=== PATIENT | female | born 1965 | race Caucasian/White ===

== ENCOUNTER 2023-09-19 08:26 | Outpatient (CLI) | payer OTHER, SELFPAY ==
--- NOTE | ~2023-09-19 | MM_ITS ---
EXAMINATION: MM screening andrea BI w jose HISTORY: Screening TECHNIQUE: Craniocaudal and mediolateral oblique 3-D tomosynthesis images were obtained and synthetic 2-D images were generated. CAD analysis was submitted and interpreted. COMPARISON: No prior mammogram is available for comparison at this institution. BREAST PARENCHYMAL COMPOSITION: Not dense: There are scattered areas of fibroglandular density. FINDINGS: There are asymmetries centered in the upper outer quadrant of the left breast. No mammograp hic evidence for malignancy in the right breast. IMPRESSION: 1. Left breast asymmetries. 2. Additional mammographic views and possible breast ultrasound are recommended. BI-RADS CATEGORY 0 - INCOMPLETE STUDY, NEED ADDITIONAL IMAGING EVALUATION. Reviewed, dictated and finalized at location A. IMPRESSION: 1. Left breast asymmetries. 2. Additional mammographic views and possible breast ultrasound are recommended . BI-RADS CATEGORY 0 - INCOMPLETE STUDY, NEED ADDITIONAL IMAGING EVALUATION.
== END 2023-09-19 08:27 | disposition home or self-care (01) ==
PROVIDERS: PCP Nurse Practitioner Family; Visit Provider Nurse Practitioner Family
DX: Z12.31 Encounter for screening mammogram for malignant neoplasm of breast (principal); R92.8 Other abnormal and inconclusive findings on diagnostic imaging of breast
CPT/HCPCS: 77063; 77067

== ENCOUNTER 2023-10-03 09:03 | Outpatient (CLI) | payer OTHER, SELFPAY ==
--- NOTE | ~2023-10-03 | MMUS_ITS ---
EXAMINATION: MM diagnostic andrea LT w jose, US breast LT complete HISTORY: Follow-up left breast asymmetries TECHNIQUE: Additional 3-D tomosynthesis images of the left breast were performed and synthetic 2-D im ages were generated. CAD analysis was submitted and interpreted. High resolution complete left breast ultrasound was performed. COMPARISON: 09/19/2023 BREAST PARENCHYMAL COMPOSITION: Not dense: There are scattered areas of fibroglandular density. FINDINGS: MAMMOGRAPHIC FINDINGS: There are no discrete masses, suspicious calcifications or architectural distortion in the left breas t. ULTRASOUND: Complete US of all 4 quadrants of the left breast and retroareolar region was reviewed. Mildly promin ent ducts are present in the subareolar location, likely accounting for asymmetry seen on mammography . IMPRESSION: 1. No evidence for malignancy in the left breast. Benign findings. 2. Routine yearly screening mammogram and regular clinical breast examination are recommended. BI-RADS Category 2: Benign finding(s). Reviewed, dictated and finalized at location B. IMPRESSION: 1. No evidence for malignancy in the left breast. Benign findings. 2. Routine yearly screening mammogram and regular clinical breast examination a re recommended. BI-RADS Category 2: Benign finding(s).
== END 2023-10-03 09:04 | disposition home or self-care (01) ==
LOC: CHSIMG 09:05
PROVIDERS: PCP Nurse Practitioner Family; Visit Provider Nurse Practitioner Family
DX: N64.89 Other specified disorders of breast (principal)
CPT/HCPCS: 76641; 77061; 77065; G0279

== ENCOUNTER 2024-03-05 10:12 | Outpatient (CLI) | payer OTHER, SELFPAY ==
[2024-03-05 10:23] LABS: Basophils Absolute Auto 0.07 K/mm3 (0.00-0.10); Basophils Percent Auto 0.8 % (0.0-1.0); Eosinophils Absolute Auto 0.26 K/mm3 (0.02-0.50); Eosinophils Percent Auto 2.8 % (1.0-6.0); Hematocrit 42.3 % (35.0-49.0); Hemoglobin 14.2 g/dL (12.0-15.0); Immature Granulocyte Absolute 0.02 K/mm3 (0.00-0.00); Immature Granulocyte Percent A 0.2 % (0.0-0.0); Lymphocytes Absolute Auto 3.26 K/mm3 (1.10-4.50); Lymphocytes Percent Auto 35.7 % (18.0-42.0); Mean Corpuscular HGB Conc 33.6 g/dL (32-36); Mean Corpuscular Hemoglobin 31.6 pg (27.0-31.0); Mean Platelet Volume 10.8 fl (9.2-11.8); Monocytes Percent Auto 7.7 % (2.0-11.0); Neutrophils Absolute Auto 4.83 K/mm3 (1.70-7.20); Neutrophils Percent Auto 52.8 % (50.0-70.0); Platelet Count Result 216 K/mm3 (150-420); Red Cell Distribution Width 12.7 % (11.6-14.4); White Blood Count 9.1 K/mm3 (4.8-10.8)
[2024-03-05 10:33] LABS: Hemoglobin A1C 5.7 % (<5.7)
[2024-03-05 11:09] LABS: Alanine Aminotransferase 41 U/L (14-59); Albumin Level 3.7 g/dL (3.4-5.0); Alkaline Phosphatase 75 U/L (46-116); Anion Gap 7 mmol/L (4-12); Aspartate Amino Transferase 29 U/L (15-37); Bilirubin,Total 0.5 mg/dL (0.00-1.00); Blood Urea Nitrogen 14 mg/dL (7-18); Calcium 8.9 mg/dL (8.5-10.1); Carbon Dioxide 27 mmol/L (21-32); Chloride 106 mmol/L (98-108); Cholesterol 211 mg/dL (0-200); Estimated Glomerular Filt Rate > 60; Glucose 102 mg/dL (70-99); HDL Direct 65 mg/dL (40-60); Iron 93 ug/dL (50-170); LDL Cholesterol Calculated 108 mg/dL (<130); Osmolality Calculated 290 mOsm/kg (285-295); Percent Iron Saturation 29 % (12-57); Potassium 4.4 mmol/L (3.5-5.1); Sodium 140 mmol/L (136-145); Total Protein 6.5 g/dL (6.4-8.2); Triglycerides 188 mg/dL (0-150)
== END 2024-03-05 10:13 | disposition home or self-care (01) ==
LOC: CHSLAB 10:13
PROVIDERS: PCP Nurse Practitioner Family; Visit Provider Nurse Practitioner Family
DX: Z00.00 Encounter for general adult medical examination without abnormal findings (principal); R23.2 Flushing
CPT/HCPCS: 36415; 80053; 80061; 83036; 83540; 83550; 84443; 85025

== ENCOUNTER 2024-03-26 09:53 | Outpatient (CLI) | payer OTHER, SELFPAY ==
--- NOTE | 2024-03-26 09:59 | ECG_ITS ---
Test Date: 2024-03-26 10:08:11 Measurements Intervals [place] Rate: 71 P: 62 VA: 158 QRS: -69 QRSD: 119 T: 48 QT: 404 QTc: 441 Interpretive Statements SINUS RHYTHM RIGHT BUNDLE BRANCH BLOCK [120+ ms QRS DURATION, UPRIGHT V1, 40+ ms S IN I/aVL/V4/V5/V6] LEFT ANTERIOR FASCICULAR BLOCK [QRS AXIS <= -45, QR IN I, RS IN II] ABNORMAL ECG No previous ECG available for comparison Electronically Signed On 03-26-2024 12:44:43 CDT by Terrence Luther M.D.
--- NOTE | 2024-03-29 08:43 | P.PCNHOL_ITS ---
Holter/Event Monitor Holter/Event Monitor Date of procedure: 03/26/24 Holter/Event Procedure: 48 Hr Holter Monitor Indications: Syncope Conclusion: 1. 48 hour holter monitor on 03/26/24. 2.Underlying rhythm is sinus rhythm. HR range 49-118 bpm; average HR 76. HR at 49 bpm was at 04:31. 3. There are 28 premature supraventricular complexes. No supraventricular tachycardia. 4. There are 4 premature ventricular complexes. No ventricular tachycardia. 5. No sinoatrial or atrioventricular blocks. No significant pauses greater than 2 seconds. 6. Patient reports symptom of left side pain which demonstrates sinus tachy cardia at 115 bpm with baseline artifact.
== END 2024-03-26 09:54 | disposition home or self-care (01) ==
LOC: CHSCARD 09:54
PROVIDERS: PCP Nurse Practitioner Family; Visit Provider Nurse Practitioner Family
DX: R23.2 Flushing (principal); I45.10 Unspecified right bundle-branch block; I44.4 Left anterior fascicular block; R94.31 Abnormal electrocardiogram [ECG] [EKG]
CPT/HCPCS: 93005; 93225; 93226

== ENCOUNTER 2024-08-27 08:00 | Outpatient (CLI) | payer OTHER, SELFPAY ==
--- NOTE | ~2024-08-27 | NM_ITS ---
EXAMINATION: NM stress w perf spect multi DATE: 08/27/2024 10:07 INDICATION: Dyspnea. TECHNIQUE: Rest images were obtained following intravenous administration of 11 mCi Tc99m tetrofosmin (Myoview). The patient performed an exercise activity. At peak exercise, 34.7 mCi Tc99m tetrofosmin (Myoview) was administered intravenously, and stress images were obtained. Data was reconstructed int o short axis and horizontal and vertical long axis SPECT images. Gated SPECT images were also obtaine d. COMPARISON: None. FINDINGS: There is no definite reversible or fixed perfusion abnormality to suggest ischemia or infar ction. There is no segmental wall motion abnormality. Left ventricular ejection fraction measures > 70%. IMPRESSION: 1. No definite ischemia or infarct. 2. Normal left ventricular ejection fraction measuring >70%. Reviewed, dictated and finalized at location L.
--- NOTE | 2024-08-27 08:06 | EST_ITS ---
Patient Info Name: Melinda Cerna Age: 59 years : 1965 Gender: Female Ht: 67 in Wt: 148 lbs BSA: 1.79 m2 HR: 70 bpm BP: 151 / 78 mmHg Exam Date: 08/27/2024 9:03 AM Exam Location: Echo Lab Patient Status: Outpatient Admit Date: 08/27/2024 Staff Ordering Physician: Ino Lozano DO Attending Provider: Ino Lozano DO Exercise Technologist: ean matute Exercise Physician: Ino Lozano DO Exam Type: CA stress test treadmill w NM Study Info Indications R06.09 - Other forms of dyspnea A nuclear stress test was performed. Summary 1. 1. Negative Pérez exercise stress test for ischemic ST changes by ECG criteria. 2. 2. Good functional capacity, achieving 8.9 METs of workload. 3. 3. Baseline hypertension with hypertensive response to exercise. 4. 4. Appropriate HR recovery at 1 minute post exercise. 5. 5. Nuclear scan to follow and will be reported separately. Please correlate with it. 6. 6. Patient informed of the above results. Protocol: Pérez Stress ECG Details Stage: REST Duration (min): 0 min : 51 sec Speed (mph): 0.0 Grade (%): 0 HR (bpm): 62 SBP (mmHg): --- DBP (mmHg): --- METS: --- Stage: REST Duration (min): 2 min : 39 sec Speed (mph): 0.0 Grade (%): 0 HR (bpm): 67 SBP (mmHg): 151 DBP (mmHg): 78 METS: --- Stage: REST Duration (min): 12 min : 30 sec Speed (mph): 0.0 Grade (%): 0 HR (bpm): 71 SBP (mmHg): 151 DBP (mmHg): 78 METS: --- Stage: STAGE 1 Duration (min): 1 min : 0 sec Speed (mph): 1.7 Grade (%): 10 HR (bpm): 100 SBP (mmHg): 151 DBP (mmHg): 78 METS: --- Stage: STAGE 1 Duration (min): 2 min : 0 sec Speed (mph): 1.7 Grade (%): 10 HR (bpm): 108 SBP (mmHg): 151 DBP (mmHg): 78 METS: --- Stage: STAGE 1 Duration (min): 3 min : 0 sec Speed (mph): 1.7 Grade (%): 10 HR (bpm): 109 SBP (mmHg): 194 DBP (mmHg): 82 METS: --- Stage: STAGE 2 Duration (min): 1 min : 0 sec Speed (mph): 2.5 Grade (%): 12 HR (bpm): 113 SBP (mmHg): 194 DBP (mmHg): 82 METS: --- Stage: STAGE 2 Duration (min): 2 min : 0 sec Speed (mph): 2.5 Grade (%): 12 HR (bpm): 122 SBP (mmHg): 219 DBP (mmHg): 87 METS: --- Stage: STAGE 2 Duration (min): 3 min : 0 sec Speed (mph): 2.5 Grade (%): 12 HR (bpm): 129 SBP (mmHg): 219 DBP (mmHg): 87 METS: --- Stage: STAGE 3 Duration (min): 0 min : 59 sec Speed (mph): 3.4 Grade (%): 14 HR (bpm): 138 SBP (mmHg): 219 DBP (mmHg): 87 METS: --- Stage: RECOVERY Duration (min): 1 min : 0 sec Speed (mph): 0.0 Grade (%): 0 HR (bpm): 121 SBP (mmHg): 219 DBP (mmHg): 87 METS: --- Stage: RECOVERY Duration (min): 2 min : 0 sec Speed (mph): 0.0 Grade (%): 0 HR (bpm): 103 SBP (mmHg): 171 DBP (mmHg): 70 METS: --- Stage: RECOVERY Duration (min): 2 min : 2 sec Speed (mph): 0.0 Grade (%): 0 HR (bpm): 103 SBP (mmHg): 171 DBP (mmHg): 70 METS: --- Rest HR: 71 bpm Peak HR: 138 bpm Rest Sys BP: 151 mmHg Peak Sys BP: 219 mmHg Max Pred HR: 159 bpm % Max Pred HR: 87 % Target HR: 135 bpm Max RPP: 30,222 bpm*mmHg Acevedo Score: 2 BP Response: Patient exhibited a hypertensive response with stress Termination Reason: Reached target heart rate or workload Cardiac Symptoms: Shortness of breath Max ST Seg Deviation: 1 mm Total Time: 6 min : 59 sec Rest Rodríguez BP: 78 mmHg Peak Rodríguez BP: 87 mmHg Angina Score: None Total METS: 8.6 Resting ECG Sinus rhythm, RBBB, LAFB. Stress ECG No ST changes. Arrhythmias None. Report Signatures
--- OUTSIDE RECORDS SUMMARY | 2024-08-27 08:11 | XMS_ITS | Clinical Summary ---
Author Organization [facility] Address [facility] [place] [address] Care Team Providers Care Commercial Title Examiner Name Role Phone Raz Fortinodameon MARIANN Primary Care Provider [phone] Allergies No known active allergies Medications Multiple Vitamins-Iron (MULTI-VITAMIN/ IRON) TabIndications: Nutritional Support Take 1 tablet by mouth daily. Indications: Nutritional Support Active fluticasone propionate (FLONASE) 50 MCG/ACT nasal sprayIndication s:Seasonal Allergic Rhinitis 1 spray by Each Nostril route daily as needed. Indications: Hayfever 4 Active sertraline (ZOLOFT) 25 MG tablet Take 1 tablet (25 mg total) by mouth daily. 4 Active zinc gluconate 50 MG Tab Take 1 tablet (50 mg total) by mouth daily. Active vitamin C (ASCORBIC ACID) 250 MG tablet Take 2 tablets (500 mg total) by mouth daily. Active HYDROcodone-sabino taminophen (NORCO) 5-325 MG tablet Take 1 tablet by mouth every 6 (six) hours as needed for Pain. Active ibuprofen (MOTRIN) 800 MG tablet Take 0.5 tablets (400 mg total) by mouth every 4 (four) hours as needed for Pain. 30 tablet 4 Active Active Problems Problem Noted Date Diagnosed Date Ruptured appendix 06/14/2023 Family History Medical History Relation Comments Heart Disease Father Cancer Mother Diabetes Mother Heart Disease Mother Diabetes Paternal Grandmother Relation Status Comments Father Mother Paternal Grandmother Social History Tobacco Use Types Packs/Day Years Used Date Smoking Tobacco: Former Cigarettes 0.5 30 0 06/21/1993 - 06/21/2023 Smokeless Tobacco: Never Alcohol Use Standard Drinks/Week Comments Not Currently 0 (1 standard drink = 0.6 oz pur e alcohol) none in 2 months [facility] Utilities Answer Date Recorded In the past 12 months has th e electric, gas, oil, or water company threatened to shut off services in your home? No 06/14/2023 Humiliation, Afraid, Rape, and Kick questionnair e Answer Date Recorded Within the last year, have y ou been afraid of your partner or ex-partner? No 06/14/2023 Within the last year, have y ou been humiliated or emotionally abused in other ways by your partner or ex-partner? No Within the last year, have y ou been kicked, hit, slapped, or otherwise physically hurt by your partner or ex-partner? No 06/14/2023 Within the last year, have y ou been raped or forced to have any kind of sexual activity by your partner or ex-partner? No 06/14/2023 Overall Financial Resource Strain (CARDIA) Answe r Date Recorded How hard is it for you to pa y for the very basics like food, housing, medical care, and heating? Not very hard 06/14/2023 Hunger Vital Sign Answer Date Recorded Within the past 12 months, y ou worried that your food would run out before you got the money to buy more. Never true 06/14/20 23 Within the past 12 months, t he food you bought just didn't last and you didn't have money to get more. Never true 06/14/2023 PRAPARE - Transportation Answer Date Re corded In the past 12 months, has l ack of transportation kept you from medical appointments or from getting medications? No 05/18 In the past 12 months, has l ack of transportation kept you from meetings, work, or from getting things needed for daily living? No 06/14/2023 Housing Stability Vital Sign Answer Efrain e Recorded In the last 12 months, was t here a time when you were not able to pay the mortgage or rent on time? No 06/14/2023 In the last 12 months, how many places have you lived? 1 06/14/2023 In the last 12 months, was t here a time when you did not have a steady place to sleep or slept in a fpc (including now)? 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 Pulse 80 08/14/2023 6:45 PM FRONT END LOADER OPERATOR Temperature 37.1 C (98.7 F) 08/14/2023 6:15 PM FRONT END LOADER OPERATOR Respiratory Rate 22 08/14/2023 6:45 PM FRONT END LOADER OPERATOR Oxygen Saturation 95% 08/14/2023 7:07 PM FRONT END LOADER OPERATOR Inhaled Oxygen Concentration - - Weight 67.4 kg (148 lb 9.4 oz) 08/14/2023 1:45 P M FRONT END LOADER OPERATOR Height 161.3 cm (5' 3.5 ) 08/14/2023 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 Body Mass Index 25.91 08/14/2023 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 Plan of Treatment Health Maintenance Due Date Last Done Comments Cervical Cancer Screening Pa p Smear (Age 30 to 64) Every 3 Years 1965 Colorectal Cancer Screening Colonoscopy (10 Years) 1965 Annual Physical 1966 PHQ-2 (Phys[facility] [place]) 1975 Hepatitis C 1981 Cervical Cancer Screening Pa p with HPV Testing (Age 30 to 64) Every 5 Years 1993 Cervical Cancer Screening with HPV 1993 Mammogram Screening 2003 Zoster Vaccines (1 of 2) 2013 DTaP, Tdap and Td Vaccines ( 2 - Td or Tdap) 06/29/2022 06/29/2012 COVID-19 Vaccine ( - 2023-2 5 season) 2024 Influenza Adult (#1) 2024 PHQ-2 (Phys[facility] [place]) 06/16/2024 RSV Immunization or 60+ Years (1 - 1-dose 75+ series) 2038 Meningococcal B Vaccine Aged Out No l onger eligible based on patient's age to complete this topic Meningococcal Vaccine Aged Out No nickie kristina eligible based on patient's age to complete this topic Pneumococcal Vaccine: Pediat rics (0 to 5 Years) and At-Risk Patients (6 to 64 Years) Aged Out No longer eligi ble based on patient's age to complete this topic RSV Immunizations Under 20 Months Aged Out No longer eligible based on patient's age to complete this topic Insurance UMR Advance Directives * Full Code (Latest Code Status on File) Date Activated Date Inactivated Comments 06/21/2023 1:52 AM 08/14/2023 12:55 PM * Full Code Date Activated Date Inactivated Comments 06/14/2023 9:42 PM 06/19/2023 5:15 PM Care Teams Commercial Title Examiner Relationship Specialty Start Date End Date Lucía Crandall FNP [address] [place] [phone] PCP - General Nurse Practitioner Family 06/17/23
== END 2024-08-27 08:01 | disposition home or self-care (01) ==
PROVIDERS: PCP Nurse Practitioner Family; Visit Provider Internal Medicine Cardiovascular Disease
DX: R06.09 Other forms of dyspnea (principal); I10 Essential (primary) hypertension
CPT/HCPCS: 78452; 93017; A9502

== ENCOUNTER 2024-11-11 12:04 | Outpatient (CLI) | payer OTHER, SELFPAY ==
--- NOTE | ~2024-11-11 | MM_ITS ---
EXAMINATION: MM screening andrea BI w jose HISTORY: Screening TECHNIQUE: Craniocaudal and mediolateral oblique 3-D tomosynthesis images were obtained and synthetic 2-D images were generated. CAD analysis was submitted and interpreted. COMPARISON: Comparison to multiple prior studies sequentially, with oldest reviewed study dated 10/2023. BREAST PARENCHYMAL COMPOSITION: Not dense: There are scattered areas of fibroglandular density. FINDINGS: There is no evidence of suspicious mass, calcification, or architectural distortion to sugg est malignancy in either breast. There has been no suspicious interval change. IMPRESSION: 1. No mammographic evidence of malignancy. 2. Recommend routine screening mammography in one year. BI-RADS Category 1: Negative Reviewed, dictated and finalized at location A.
== END 2024-11-11 12:05 | disposition home or self-care (01) ==
LOC: CHSIMG 12:07
PROVIDERS: PCP Nurse Practitioner Family; Visit Provider Nurse Practitioner Family
DX: Z12.31 Encounter for screening mammogram for malignant neoplasm of breast (principal)
CPT/HCPCS: 77063; 77067

== ENCOUNTER 2025-06-10 08:26 | Outpatient (CLI) | payer OTHER, SELFPAY ==
--- OUTSIDE RECORDS SUMMARY | 2025-06-10 08:29 | XMS_ITS | Data Portability ---
Author Organization [id number] Address [address] [place] [address] Assessment Encounter Date Assessment Date Assessment LastModified by Organization Details LastModified Time 11/19/2024 11/19/2024 nonsmoker nondrinker! 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 declines colon cancer screening, [facility] PCP offered kain litzy Not available 11/19/2024 09:38:20 Plan of Treatment Reminders Order Date Submit Date Provider Last Modified By Organization Details Last Modified Time Details Appointments ANNUAL- EST 15 2025 07:45A M CONNOR PABON MD Not available Not available Not available Lab None recorded. Referral None recorded. Procedures None recorded. Surgeries None recorded. Imaging MAMMO, screening , digital, bilateral [address] [facility], [address] [place], [address], 11/19/2024 11:35:26 Medication Orders None recorded. Patient TargetsNo targets recorded. Patient InstructionsNo instructions recorded. Reason for Referral None Reported. Results Created Date Observation Date Name Description Value Unit Range Abnormal Flag Note LastModifiedBy Organization Detail LastModifiedTime 11/20/19 25 11/11/2024 MAMMO , scree norbert, digit al, bilat eral No observ ation record ed. [facility] [address] [place], [address], 11/19/2024 12:00:54 Result Notes None recorded. Procedures Surgical History Date Name Laterality Status Provider Name and Address Organization Details Recorded Time 11/12/19 25 Date of Last Mammogram completed Nayeli Vasquez(TERM) [facility] 11/19/2024 09:21:14 11/07/19 24 Date of Last Pap Smear completed Nayeli Vasquez(TERM) [facility] 11/19/2024 09:19:16 Appendectomy completed Not Available [facility] 10/14/2024 15:19:35 Remove intrauterine device completed Not Available [facility] 10/14/2024 15:19:35 cryotherapy completed Not Available [facility] 10/14/2024 15:19:35 Appendectomy completed Nayeli Vasquez(TERM) [facility] 11/19/2024 09:21:27 Imaging Results None recorded. Procedure Notes None recorded. Medical Equipment None Reported. Allergies No known drug allergies Medications Name Sig Start Date Stop Date Status Note LastModified by Organization Details LastModified Time amlodipine 2.5 mg tablet TAKE 1 TABLET BY MOUTH ONCE DAILY active Not Available Not Available No t Available sertraline 25 mg tablet TAKE 1 TABLET BY MOUTH ONCE DAILY active Not Available Not Available No t Available zinc gluconate 50 mg tablet Take by oral route. active Not Available Not Available No t Available Vitamin C active Not Available Not Ana Lilia ilable Not Available magnesium oxide active Not Available Not Available Not Available multivitamin active Not Available Not Available Not Available Vitamin D3 10 mcg (400 unit) chewable tablet Take by oral route. active Not Available Not Available No t Available aspirin 325 mg capsule Take by oral route. active Not Available Not Available No t Available omega 3 850 tz-pei-qtq-fis h oil 1,400 mg capsule Take by oral route. active Not Available Not Available No t Available Vitals Date Recorded Body height Body mass index (BMI) Body weight Systolic And Diastolic Provider Name and Address Organization Details Last Updated DateTime 11/19/2024 165.1 cm 26.1 kg/m2 19368 g 122/64 mm[Hg] Nayeli Vasquez(TERM ) [facility] 11/19/2024 09:28:51 Social History Question Answer Notes LastModified by Organizat ion Details LastModified Time Tobacco Smoking Status Current Some Day Smoker Qty: 1 pk less/day; Note: - [employer] 11/04/2023; Screenin11/04/2023 Not Available [facility] 10/14/2024 16:27:09 Do You Have An Advance Directive? No Information not available 11/19/2024 If You Are , What Was Your Level Of Alcohol Consumption Prior To ? None Information not available 11/19/2024 What Is Your Level Of Caffeine Consumption? Moderate Information not available 11/19/2024 What Type Of Diet Are You Following? REGULAR Information not available 11/19/2024 What Is Your Relationship Status? Note: - [employer] 11/04/2023 Information not available 10/14/2024 At What Age Did You Start Smoking Tobacco? 13 Information not available 11/19/2024 How Much Tobacco Do You Smoke? No Information not available 11/19/2024 Sex: Female Functional Status Question Answer Note LastModified by Organizat ion Details LastModified Time Do you use any illicit or recreational drugs? No Information not available 10/14/2024 What is your level of alcohol consumption? Occasional Qty: 0-2 per day; Note: - [employer] 11/04/2023 Information not available 10/14/2024 Are you currently employed? Yes Information not available 11/19/2024 What is your occupation? Note: [employer] Information not available 10/14/2024 What is your exercise level? Heavy Note: - [employer] 11/04/2023 Information not available 10/14/2024 Mental Status None recorded. Family History Relationship Description Onset Age of this Age Resolved Age Notes LastModified by Organization Details LastModified Time Mother Malignant neoplastic disease Cancer mother unsure mgm unsure Not available 10/14/2024 16:30:13 Mother Heart disease Heart Diseas e Not available 10/14/2024 16:30:13 Paternal Grandmother Malignant neoplastic disease Cancer mother unsure mgm unsure Not available 10/14/2024 16:30:13 Father Hypertensive disorder High Blood Pressu re - Not available 10/14/2024 16:30:13 Father Heart disease Heart Diseas e Not available 10/14/2024 16:30:13 Paternal Grandfather Hypertensive disorder High Blood Pressu re - Not available 10/14/2024 16:30:13 Paternal Grandfather Heart disease Heart Diseas e Not available 10/14/2024 16:30:13 Medical History Condition Response Cancer- Genetic screening Cardiology- High Blood Pressure Y Cancer- Cervical Y Gynecological History Statement/Question Response History of PCOS N Date of Last Mammogram 11/11/2024 Flow Moderate History of Fibroids N History of Infertility N History of Vulvar Dysplasia N History of Cervical Dysplasia N Current Control Method: Menopause Duration of Flow (days) 0 Age at Menarche 8 Current Control Method Menopause Cologuard Testing N History of Recurrent Ovarian Cysts N HPV Vaccine Not Completed History of Endometriosis N Frequency of Cycle (Q days) 28 Sexually Active? N History of Dysmenorrhea N Menses Monthly N Date of Last HPV Test 11/07/2023 Date of Last Pap Smear 11/07/2023 History of Sexually Transmitted Infectio n N Date of Last Cholesterol Screening 06/16 Obstetrics History GPAL:G 3 P 3 0 0 3 Type Value Multiple Births 0 Full Term 3 Induced 0 Spontaneous 0 Premature 0 Living 3 Ectopics 0 Total 3 Past Encounters Encounter ID Performer Location Encounter Start Date Encounter Closed Date Diagnosis/Indication Diagnosis SNOMED-CT Code Diagnosis ICD10 Code Diagnosis IMO Codes Diagnosis Note [id number] CONNOR PABON MD [id number] [facility] [address] [facility] [place] [address] 11/19/2024 08:56:12 11/19/2024 09:41:38 Screening mammography 83680531 Z12.31 [id number] Gynecologi c examination 71092045 Z01.419 [id number] Health Concerns Section Related Observation LastModified by Organization Detai ls LastModified Time None Recorded Concern Status LastModified by Organization Details LastModified Time None Recorded Advance Directives Directive N: Payers Insurance Date Sequence Insurance Name Policy Number Policy Suazo Covered Member ID Suazo Member ID Guarantor Name 11/19/2024 1 [employer] [id number] Melinda Rebolledoo [id number] Melinda Cerna Notes Date Note Type Note Provider Name and Address Organization Details Recorded Time 5 text/html Annual CT TECH - McwhcReported by PatientGenitourinary symptomsFor urinary symptoms, patient reportsno hematuriaandno incontinence. For vulvar complaints, patient reportsnone. For vaginal complaints, patient reportsnone. For gastrointestinal symptoms, patient reportsno gastrointestinal symptoms.Breast symptomsFor breast, patient reportsno breast pain,no breast lump, andno nipple discharge.Endocrine symptomsFor sexual complaints, patient reportsno sexual complaints. For menopausal symptoms, patient reportsno menopausal symptomsandnormal vaginal lubrication.Psychological symptomsFor psychological symptoms, patient reportsno depression,no anxiety, andno pmdd. CONNOR PABON MD [address] [facility] [address], [place], [address], [facility] 11/19/2024 09:38:45 OBGyn Episode No OBEpisode recorded.
--- OUTSIDE RECORDS SUMMARY | 2025-06-10 08:29 | XMS_ITS | Clinical Summary ---
Author Organization [facility] Address [facility] [place] [address] Care Team Providers Care Merchandising Specialist Name Role Phone Raz Fortinodameon MARIANN Primary Care Provider [phone] Allergies No known active allergies Medications Multiple [...] pur e alcohol) none in 2 months [facility] Utilities Answer Date Recorded In the past [...] place to sleep or slept in a prison (including now)? No 06/14/2023 Comments No Sex and Gender Information Value Date Recorded Sex Assigned at Not on file Legal Sex Female 6:39 PM CDT Gender Identity Not on file Sexual Orientation Not on file Last Filed Vital Signs Vital Sign Reading Time Taken Comments Blood Pressure 114/79 08/14/2023 7:07 PM [employer] Pulse 80 08/14/2023 6:45 PM [employer] Temperature 37.1 C (98.7 F) 08/14/2023 6:15 PM [employer] Respiratory Rate 22 08/14/2023 6:45 PM [employer] Oxygen Saturation 95% 08/14/2023 7:07 PM [employer] Inhaled Oxygen Concentration - - Weight 67.4 kg (148 lb 9.4 oz) 08/14/2023 1:45 P M [employer] Height 161.3 cm (5' 3.5) 08/14/2023 1:45 PM [employer] Body Mass Index 25.91 08/14/2023 1:45 PM [employer] Plan of Treatment Health Maintenance Due Date Last Done Comments Cervical Cancer Screening Pa p Smear (Age 30 to 64) Every 3 Years 1963 Colorectal Cancer Screening Colonoscopy (10 Years) 1963 Annual Physical 1966 Hepatitis C 1981 Cervical Cancer Screening Pa p with HPV Testing (Age 30 to 64) Every 5 Years 1993 Cervical Cancer Screening with HPV 1993 Mammogram Screening 2003 Pneumococcal Vaccine: 50+ Ye ars (1 of 1 - PCV) 2013 Zoster Vaccines (1 of 2) 2013 DTaP, Tdap and Td Vaccines ( 2 - Td or Tdap) 06/29/2022 06/29/2012 PHQ-2 (Physician [place]) 06/16/2024 COVID-19 Vaccine (1 - 2024-2 6 season) 2025 Influenza Adult (#1) 2025 RSV Immunization or 60+ Years (1 - 1-dose 75+ series) 2038 Hepatitis A Vaccines Aged Out No long er eligible based on patient's age to complete this topic Meningococcal B Vaccine Aged Out No l [...] 9:42 PM 06/19/2023 5:15 PM Care Teams Merchandising Specialist Relationship Specialty Start Date End Date Lucía Crandall FNP [address] [place] [id number] PCP - General Nurse Practitioner Family 06/17/23
[2025-06-10 08:59] LABS: Hemoglobin A1C 5.5 % (<5.7)
[2025-06-10 09:14] LABS: Alanine Aminotransferase 31 U/L (6-35); Albumin Level 4.6 g/dL (3.5-5.1); Alkaline Phosphatase 62 U/L (38-126); Anion Gap 7 mmol/L (4-12); Aspartate Amino Transferase 42 U/L (14-36); Bilirubin,Total 0.8 mg/dL (0.2-1.3); Blood Urea Nitrogen 13 mg/dL (7-17); Calcium 9.6 mg/dL (8.4-10.2); Carbon Dioxide 26 mmol/L (22-30); Chloride 107 mmol/L (98-107); Cholesterol 215 mg/dL (0-200); Estimated Glomerular Filt Rate > 60; Glucose 94 mg/dL (65-110); HDL Direct 87 mg/dL; Osmolality Calculated 290 mOsm/kg (285-295); Potassium 4.7 mmol/L (3.4-5.0); Sodium 140 mmol/L (137-145); Total Protein 7.1 g/dL (6.3-8.2); Triglycerides 83 mg/dL (<150)
== END 2025-06-10 08:27 | disposition home or self-care (01) ==
LOC: CHSLAB 08:28
PROVIDERS: PCP Nurse Practitioner Family; Visit Provider Internal Medicine Cardiovascular Disease
DX: E78.5 Hyperlipidemia, unspecified (principal)
CPT/HCPCS: 36415; 80053; 80061; 83036